=== PATIENT | male | born 2000 | race Caucasian/White ===

== ENCOUNTER 2020-07-06 16:24 | Emergency (ER) | payer BC ==
[~2020-07-06] VITALS: Ht 185.4 cm; Wt 75.0 kg
[2020-07-06 16:38] VITALS: TEMP 98.3
[2020-07-06] MEDS ORDERED: NORCO 325 MG-51 TAB PO (19:09)
[2020-07-06 19:33] VITALS: BP 112/70; PULSE 74
== END 2020-07-06 19:35 | disposition home or self-care (01) ==
LOC: COL.ER 16:24
DX: S92.424A Nondisplaced fracture of distal phalanx of right great toe, initial encounter for closed fracture (principal); S86.911A Strain of unspecified muscle(s) and tendon(s) at lower leg level, right leg, initial encounter; V00.311A Fall from snowboard, initial encounter
CPT/HCPCS: L1846